=== PATIENT | male | born 1965 | race Caucasian/White ===

== ENCOUNTER 2020-09-27 06:05 | Outpatient (REF) | payer OTHER, SELFPAY | END 2020-09-27 06:06 | disposition home or self-care (01) | LOC: HO.HMGCLDS 06:05 | PROVIDERS: Visit Provider Internal Medicine | DX: Z20.828 Contact with and (suspected) exposure to other viral communicable diseases (principal) | CPT/HCPCS: C9803; U0003 ==

== ENCOUNTER 2024-08-22 14:19 | Emergency (ER) | payer OTHER, SELFPAY ==
--- NOTE | ~2024-08-22 | XR_ITS ---
EXAMINATION: XR FINGER, RIGHT CLINICAL INFORMATION: Laceration second digit. COMPARISON: None available. TECHNIQUE: Three views of the right index finger. FINDINGS: Laceration, soft tissue swelling and overlying bandages around the proximal interphalangeal joint of the second digit. No unexpected radiopaque foreign bodies. No osseous fractures or malalignment. XR/XR finger RT min 2V IMPRESSION: 1. Soft tissue swelling and laceration around the proximal interphalangeal joint of the second digit. 2. No osseous fractures or malalignment. Electronically signed by: Medina Redman MD 08/22/2024 04:14 PM EDT
--- NOTE | 2024-08-22 14:26 | ED.SKABFB ---
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 He accidentally removed the protective guard and sustained an approximate 1.5 cm laceration over the knuckle of the 1st digit on the right hand. He reports full range of motion of the finger. No numbness, tingling or weakness. He was able to stop the bleeding with direct pressure. He states he recently had another laceration a month or 2 ago and is up-to-date on his tetanus shot. complaint: laceration Onset (ago): hour(s) Tetanus up to date: yes Location: R hand Severity: mild Pain Consistency: now resolved Associated symptoms: denies other symptoms Treatments prior to arrival: bandages Related Data Allergies Allergy/AdvReac Type Severity Reaction Status Date / Time erythromycin base Allergy Intermediate UNKNOWN Verified 08/22/24 14:31 [ERYTHROMYCIN BASE] Review of Systems Review of Systems: Yes all other systems are reviewed and are negative PMFSH Social History Social History Advance Directives: No Advance Directives Information Provided: No Physical Exam Vital Signs: Vital Signs: Last Vital Signs Temp 98.5 F 08/22/24 15:51 Pulse 78 08/22/24 15:51 Resp 16 08/22/24 15:51 BP 141/68 H 08/22/24 15:51 Pulse Ox 95 08/22/24 15:51 O2 Del Method Room Air 08/22/24 15:51 BMI result Body Mass Index 29.6 Appearance: Alert. Oriented X3. No acute distress. HEENT: normal inspection CVS: Normal heart rate and rhythm. Pulses normal. Respiratory: No respiratory distress. Skin: Skin warm and dry. Normal skin color. Normal skin turgor. No rashes. Extremities: Dorsal aspect of the right index finger with an approximate 1.5 cm linear, superficial laceration over the PIP joint. No active bleeding. Full range of motion of the digit. Neurovascularly intact distally. Neuro: Oriented X 3. No motor deficit. No sensory deficit. Course Course Course Narrative: This is a Rapid Medical Examination (RME) performed by Rene Bernard PA-C in triage. Full HPI, ROS, assessment and treatment plan per primary provider in the Main ED. 59 yo male here for eval of laceration to right pointer finger sustained FISHER TERRAPIN while working on his vehicle. tetanus UTD. + 1.5 cm linear laceration to right 2nd PIP. FROM intact. bleeding controlled. Plan: xr, suture repair Medications Administered Discontinued Medications Generic Name Dose Route Start Last Admin Trade Name Yue PRN Reason Stop Dose Admin Lidocaine HCl 2 ml 08/22/24 15:25 08/22/24 15:37 Lidocaine Hcl 1 % Mpf 2 Ml Vial INFILTRATI 08/22/24 15:26 2 ml ONCE ONE Administration Medical Decision Making Medical Decision Making MDM Narrative: 59 yo male presents the ER for evaluation of a laceration to the dorsal aspect of the right index finger, over the PIP joint. No active bleeding on arrival. No appearance of tendon involvement or bony involvement. X-ray without any acute fractures. Tdap is up-to-date. Three sutures were used to close the wound today with good approximation. Wound care discussed with the patient. Stable for discharge home. Differential Diagnosis Differential Diagnoses: The differential diagnosis associated with the presentation includes Superficial laceration, deep laceration, tendon laceration, open fracture Independent Interpretation I performed an independent interpretation of an: Plain X-Ray Interpretation: No acute fracture or foreign bodies appreciated Radiology Impression Discussion of test interpretation with radiology: I have reviewed the radiologist's reading. Independent Historian Clinical information obtained from an independent historian. History obtained from or confirmed by: Spouse Prescription Management I considered prescription management with: Pain Medication and Antibiotic Procedures Laceration Laceration 1: Site: hand Side (If applicable): right Size (cm): 1.5 Description: linear Depth: simple, single layer Local Anesthetic: lidocaine 1% Amount of anesthesia used (mL): 0.5 Pre-repair: wound explored, irrigated extensively and deep structures intact Skin layer closed with: nylon Size (cm): 4-0 Number of sutures: 3 Technique: simple, interrupted Critical Care Time Critical Care Time Critical Care Time: No Discharge Plan Discharge Clinical Impression: Laceration Patient Disposition: Home, Self-Care Instructions: Finger Laceration (ED) Additional Instructions: 3 stithces were used to close your wound today You will need your stitches out in 7 days. See you doctor for this or come back to the ER and we will remove them. Do not get wet for 24-48 hours, after that you can briefly wash with soap and water then pat dry. Keep wound clean and covered. Do not submerge in water, no swimming. If you develop signs of infection including increased pain, swelling, redness or drainage of pus come back to the ER for further evaluation. Interventions: ED Discharge Assessment Last Done: 08/22/24 15:51 Discharge Date/Time: 08/22/24 15:52 Print Language: Uzbek
[2024-08-22 14:27] VITALS: BP 141/68; PULSE 78; RESP 16; TEMP 36.9; O2SAT 95; BMI 29.6
[2024-08-22] MEDS: Lidocaine HCl 1 % MPF 2 ML VIAL INFILTRATI (15:37)
[2024-08-22 15:51] VITALS: BP 141/68; PULSE 78; RESP 16; TEMP 36.9; O2SAT 95
== END 2024-08-22 15:52 | disposition home or self-care (01) ==
PROVIDERS: Emergency Provider Emergency Medicine; PCP Nurse Practitioner Family
DX: S61.210A Laceration without foreign body of right index finger without damage to nail, initial encounter (principal); M79.641 Pain in right hand; W31.89XA Contact with other specified machinery, initial encounter; Y93.89 Activity, other specified; Y92.89 Other specified places as the place of occurrence of the external cause; Y99.8 Other external cause status
CPT/HCPCS: 12041; 73140; 99282; 99284; J2003

== ENCOUNTER 2024-08-28 11:37 | Emergency (ER) | payer OTHER, SELFPAY ==
[2024-08-28 11:45] VITALS: BP 138/70; PULSE 88; RESP 16; TEMP 36.5; O2SAT 98; BMI 29.9
--- NOTE | 2024-08-28 11:45 | ED.UPPEXIN ---
HPI - Extremity Injury (Upper) General Chief Complaint: Wound/Laceration Stated Complaint: r index finger swelling Time Seen by Provider: 08/28/24 11:49 Source: patient, RN notes reviewed and old records reviewed Mode of arrival: ambulatory Limitations: no limitations History of Present Illness ED Provider: NIYAH BULLARD PA-C HPI narrative: 59 year old male presents to the ED today for evaluation of redness/ swelling to right index finger x24 hours. 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 He had xrays completed which did not demonstrate fracture and 3 sutures were placed. He was advised to return in 7 days for removal. He began to notice redness/ swelling to the area yesterday. His daughter who is a nurse, removed the sutures last night (2 days early). She advised he come to the ED for antibiotics. He is able to move the finger without issue. Pain does not radiate. No new injury or trauma to the finger. Denies fever, chills, discharge from the laceration. Related Data Previous Rx's ?Medication ?Instructions ?Recorded cephalexin 500 mg capsule 500 mg PO TID 7 days #21 caps 08/28/24 Allergies Allergy/AdvReac Type Severity Reaction Status Date / Time erythromycin base Allergy Intermediate UNKNOWN Verified 08/28/24 11:49 [ERYTHROMYCIN BASE] Review of Systems Review of Systems: Yes all other systems are reviewed and are negative [facility] Past Medical History Attestation statement: The following information was validated with the patient. Source: old records reviewed and nursing notes reviewed Social History Social History Advance Directives: No Advance Directives Information Provided: Yes Physical Exam Vital Signs: Vital Signs: Last Vital Signs Temp 97.7 F 08/28/24 11:51 Pulse 88 08/28/24 11:51 Resp 16 08/28/24 11:51 BP 138/70 08/28/24 11:51 Pulse Ox 98 08/28/24 11:51 O2 Del Method Room Air 08/28/24 11:51 BMI result Body Mass Index 29.9 vitals stable. afebrile. General: Well appearing, in no acute distress. Skin: +minimal swelling and erythema noted to right 2nd PIP with well healing laceration. No dehiscence. No discharge. No pointing. No palpable fluctuance. No streaking. warm and tender to palpation. Full ROM intact to right 2nd MCP, PIP, DIP. Head: Normocephalic, atraumatic. Cardiac: Chest wall symmetric. RRR Lungs: Normal respiratory effort without accessory muscle use Ext: see above Neuro: AOx3. Normal speech. Ambulating with steady gait. Psych: Appropriate mood and affect. Responds appropriately to questions. Course Course Course Narrative: 1155 -- exam is consistent with cellulitis. no concern for deeper infection, wound dehiscence or joint involvement. will discharge him home with keflex. Patient has remained stable throughout ED visit today. Discussed worrisome signs and symptoms and when to return to the ED. All questions answered at this time. Patient is agreeable with disposition and stable for discharge. Medical Decision Making Medical Decision Making MDM Narrative: 59 year old male presents to the ED today for evaluation of redness/ swelling to right index finger x24 hours. Vitals stable. afebrile. on exam, there is minimal swelling and erythema noted to right 2nd PIP with well healing laceration. No dehiscence. No discharge. No pointing. No palpable fluctuance. No streaking. warm and tender to palpation. Full ROM intact to right 2nd MCP, PIP, DIP. Differential diagnosis includes cellulitis. I do not have suspicion for retained FB, osteomyelitis, septic joint Plan for discharge. Differential Diagnosis Differential Diagnoses: The differential diagnosis associated with the presentation includes as above. Admission/Observation not indicated. Independent Interpretation I performed an independent interpretation of an: Plain X-Ray Interpretation: XR 08/22/24 does not demonstrate fx or retained fb, agree with radiologist's interpretation. Radiology Impression Discussion of test interpretation with radiology: I have reviewed the radiologist's reading. Radiologist Impression: EXAMINATION: XR FINGER, RIGHT CLINICAL INFORMATION: Laceration second digit. COMPARISON: None available. TECHNIQUE: Three views of the right index finger. FINDINGS: Laceration, soft tissue swelling and overlying bandages around the proximal interphalangeal joint of the second digit. No unexpected radiopaque foreign bodies. No osseous fractures or malalignment. XR/XR finger RT min 2V IMPRESSION: 1. Soft tissue swelling and laceration around the proximal interphalangeal joint of the second digit. 2. No osseous fractures or malalignment. Electronically signed by: Medina Redman MD 08/22/2024 04:14 PM EDT RP External Record Review External record reviewed: Inpatient record Prescription Management I considered prescription management with: Antibiotic (keflex) Social Determinants Patient?s care significantly limited by Social Determinants of Health including: Other Social Determinant of Health Critical Care Time Critical Care Time Critical Care Time: No Discharge Plan Discharge Clinical Impression: Cellulitis Qualifiers: Site of cellulitis: extremity Site of cellulitis of extremity: finger Laterality: right Qualified Code(s): L03.011 - Cellulitis of right finger Patient Disposition: Home, Self-Care Instructions: Cellulitis (ED), Warm Compress or Soak (ED) Additional Instructions: You were evaluated in the ED today for swelling to your right index finger. You have a superficial skin infection called cellulitis. Treatment for this is with antibiotics. Keflex is an antibiotic that has been sent to your pharmacy for you to take over the next week. Take this as prescribed do not miss any doses as this may cause infection to persist or worsen. Follow up with PCP as needed. Please return to the ED with new or worsening symptoms sent as increased redness, drainage, opening up your laceration, inability to move your finger. In the case of an emergency call 911. Prescriptions: New cephalexin 500 mg capsule 500 mg PO TID 7 Days Qty: 21 0RF Referrals: Nathalia Koehler CNP [Primary Care Provider] - Interventions: ED Discharge Assessment Last Done: 08/28/24 11:51 Discharge Date/Time: 08/28/24 11:54 Print Language: Polish
[2024-08-28 11:51] VITALS: BP 138/70; PULSE 88; RESP 16; TEMP 36.5; O2SAT 98
== END 2024-08-28 11:54 | disposition home or self-care (01) ==
PROVIDERS: Emergency Provider Emergency Medicine Emergency Medical Services; PCP Nurse Practitioner Family
DX: L03.011 Cellulitis of right finger (principal)
CPT/HCPCS: 99282; 99283